=== PATIENT | male | born 1975 | race Caucasian/White ===

== ENCOUNTER → 2018-10-05 | Outpatient (CLI) | payer BC ==
[~2018-10-05] MED LIST: BARIUM SULFATE 60% 355 ML SUSP PO ONE
--- NOTE | 2018-10-05 15:09 | RAD ---
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 Fluoroscopy was utilized for 0.3 minutes. 5 fluoroscopic images were acquired. 5 overhead views were provided. On the initial AP supine frontal view provided, contrast is noted within the distal esophagus. Contrast reaches the cecum by 20 minutes. No stricture or suspicious filling defect. Terminal ileum is unremarkable. Appendix is not identified consistent with reported surgical history. Impression: Contrast within the distal esophagus is present. Correlate for possibility of reflux. Electronically signed by: Craig Mcgee MD (10/05/2018 3:06 PM) [facility]
== END | disposition home or self-care (01) ==
LOC: RAD 09:31
PROVIDERS: ATTEND Internal Medicine Gastroenterology
DX: K22.8 Other specified diseases of esophagus (principal); R10.11 Right upper quadrant pain
CPT/HCPCS: 74250

== ENCOUNTER → 2019-03-10 | Outpatient (CLI) | payer BC ==
--- NOTE | 2019-03-10 16:32 | RAD ---
EXAM: Soft tissue ultrasound, left groin. HISTORY: Palpable focus left groin. COMPARISON: None. FINDINGS: Sonographic evaluation of the site of concern in the left inguinal region was performed. At the site of concern, a small inguinal hernia contains fat and a region of hypoechoic soft tissue measuring 2.5 x 2.1 x 1.2 cm. It contains internal perfusion. The remainder of the hernia contains fat signal intensity. Lymph node in the left inguinal region and measures 11 x 5 mm and is likely benign. IMPRESSION: 1. A left inguinal hernia contains fat and a soft tissue nodule measuring 2.5 cm. This is indeterminate. Correlate to exclude considerations such as an undescended testis. Peritoneal malignancy could produce this appearance, and CT of the abdomen and pelvis could further evaluate versus biopsy if the diagnosis remains unclear. Electronically signed by: Inna Murray MD (03/10/2019 4:29 PM) [facility]
== END | disposition home or self-care (01) ==
LOC: US 15:29
PROVIDERS: ATTEND Family Medicine
DX: K40.90 Unilateral inguinal hernia, without obstruction or gangrene, not specified as recurrent (principal); K41.90 Unilateral femoral hernia, without obstruction or gangrene, not specified as recurrent
CPT/HCPCS: 76881